=== PATIENT | female | born 1990 | race Caucasian/White ===

== ENCOUNTER → 2021-04-08 11:56 | Outpatient (CLI) | payer OTHER, SELFPAY ==
[2021-04-08 10:44] VITALS: BMI 32.7
[2021-04-08 13:13] LABS: NATERA MAILED SPECIMEN
== END ==
PROVIDERS: PCP Student in an Organized Health Care Education/Training Program; Referring Provider Obstetrics & Gynecology; Visit Provider Obstetrics & Gynecology
DX: Z34.81 Encounter for supervision of other normal pregnancy, first trimester (principal)
CPT/HCPCS: 36415

== ENCOUNTER → 2021-07-22 13:40 | Outpatient (CLI) | payer OTHER, SELFPAY ==
[2021-07-22 14:05] LABS: Absolute Neutrophil Count 9.7 X10^3/uL (2.0-7.7); Basophil# 0.02 X10^3/uL; Basophil% 0.2 % (0-1); Eosinophil# 0.23 X10^3/uL; Eosinophils% 1.7 % (0-5); Hematocrit 35.2 % (37-47); Hemoglobin 11.6 g/dL (12.0-15.0); Lymphocyte % 17.4 % (19-41); Mean Corpuscular Hgb 28.2 pg (27.0-32.0); Mean Corpuscular Volume 85.4 fL (81-99); Mean Platelet Vol. 9.2 fl (6.2-12.0); Monocyte# 0.87 X10^3/uL; Monocyte% 6.6 % (0-10); NRBC Flagged by Analyzer 0 % (0-5); Neutrophil # 9.71 X10^3/uL (2.7-7.7); Neutrophil % 73.5 % (47-70); Platelet Count 400 K/mm3 (150-450); RBC Distribution Width CV 12.3 % (11.6-14.6); RBC Distribution Width SD 38.3 fl (35.1-43.9); Red Blood Count 4.12 M/mm3 (4.2-5.4); White Blood Count 13.2 K/mm3 (4.4-11.0)
[2021-07-22 14:38] LABS: Glucose Challenge Gest 1H 50g 150 mg/dL (70-140); Thyroid Stim Hormone (TSH) 0.07 uIU/mL (0.358-3.74)
== END ==
PROVIDERS: PCP Student in an Organized Health Care Education/Training Program; Referring Provider Nurse Practitioner Women's Health; Visit Provider Nurse Practitioner Women's Health
DX: Z13.1 Encounter for screening for diabetes mellitus (principal); E03.9 Hypothyroidism, unspecified
CPT/HCPCS: 36415; 82950; 84443; 85025

== ENCOUNTER → 2021-08-02 07:06 | Outpatient (CLI) | payer OTHER, SELFPAY ==
[2021-08-02 09:56] LABS: Glucose GTT-Gestational 1 Hr 191 mg/dL (<190)
[2021-08-02 09:57] LABS: Glucose GTT-Gestation. Fasting 71 mg/dL (<105)
[2021-08-02 10:55] LABS: Glucose GTT-Gestational 2 Hr 144 mg/dL (<165)
[2021-08-02 13:28] LABS: Glucose GTT-Gestational 3 Hr 66 L (<145)
== END ==
PROVIDERS: PCP Student in an Organized Health Care Education/Training Program; Referring Provider Obstetrics & Gynecology; Visit Provider Obstetrics & Gynecology
DX: O99.810 Abnormal glucose complicating pregnancy (principal); Z3A.00 Weeks of gestation of pregnancy not specified
CPT/HCPCS: 36415; 82951; 82952

== ENCOUNTER → 2021-09-03 16:26 | Outpatient (CLI) | payer OTHER, SELFPAY ==
[2021-09-03 17:45] LABS: T4 Free Direct 1.05 ng/dL (0.76-1.46); Thyroid Stim Hormone (TSH) 0.38 uIU/mL (0.358-3.74)
== END ==
PROVIDERS: PCP Student in an Organized Health Care Education/Training Program; Visit Provider Obstetrics & Gynecology
DX: E03.9 Hypothyroidism, unspecified (principal)
CPT/HCPCS: 36415; 84439; 84443

== ENCOUNTER → 2021-10-01 17:12 | Outpatient (CLI) | payer OTHER, SELFPAY | PROVIDERS: PCP Student in an Organized Health Care Education/Training Program; Referring Provider Obstetrics & Gynecology; Visit Provider Obstetrics & Gynecology | DX: Z34.90 Encounter for supervision of normal pregnancy, unspecified, unspecified trimester (principal) | CPT/HCPCS: 87077; 87081; 87186 ==

== ENCOUNTER 2021-10-11 13:15 | Inpatient (IN) | payer OTHER, SELFPAY ==
[2021-10-11] VITALS (33 sets, daily range): BP systolic 113–153; BP diastolic 55–99; PULSE 79–133; RESP 18; TEMP 36.3–37.4; O2SAT 93–100; BMI 37.3
[2021-10-11 13:40] LABS: Hepatitis B Surface Antigen Non-Reactive (Nonreactive)
--- NOTE | 2021-10-11 13:44 | HP.PCM.OB_ITS ---
HPI - General General Date of Admission: 10/11/21 HPI Narrative EMIGDIO CARBALLO, is a 30 F who presents IAL made change to 3 cm and is uncomfortable. she denes any blee;ding or LOF> Maternal Data Information ABE Calculator Estimated Delivery Date Method Current WG Current Estimate 10/17/21 LMP (Certain) 39w 1d PFSH PFS Medical History Lab test positive for detection of COVID-19 virus Home Medications cetirizine 10 mg tablet 10 mg PO DAILY PRN 03/31/21 [History Last Taken 10/09/21 08:00] prenat.vits,mile,wuy-gllw-enraa 1 tab PO DAILY 03/31/21 [History Last Taken 10/10/21 17:00] sertraline 50 mg tablet 50 mg PO DAILY 03/31/21 [History Last Taken 10/10/21 17:00] levothyroxine 125 mcg capsule 125 mcg PO DAILY 09/03/21 [History Last Taken 10/11/21 08:00] Allergy/AdvReac Type Severity Reaction Status Date / Time No Known Allergies Allergy Verified 10/06/21 13:18 Family History Father Heart disease Grandfather Cancer prostate CVA (cerebral vascular accident) Heart disease Grandmother Breast cancer Surgical History S/P wisdom tooth extraction Social History adopted: No household members: spouse current occupational status: employed current occupation: [employer] pets and animals: Yes (avoid litter box) pets and animals: cat(s) and dog(s) Smoking Status: Never smoker alcohol intake: former details: not while substance use type: does not use History 1 Elective abortions Hx Para 0 Spontaneous abortions Hx # Term Pregnancies Ectopic pregnancies Hx # Pregnancies Multiple births # of living children Visit Details Expected Delivery Route/Plan w/ early epidural Labor Preferences- CB/BF classes: yes labor support person: Phoenix and mom Kemi labor intervention preferences: prefers limited explanation of interventions, just discuss what is needed from patient, plan early epidural, declines touch, will be emotional due to recent loss of father. pain management options preferred: early epidural cut cord/dad catch: yes : yes PP control planned: OCPs discussed possible routes of delivery and associated risks: [] special requests: [] Plans Covid status: pos in past, counseled regarding risk of covid in vs vaccination and declined vaccination flu vaccine: declined tdap vaccine: declined rhogam: na LARC form signed: 08/05 movement and labor precautions reviewed. Problem list reviewed and updated with the most current plan of care details and appropriate orders placed. Relevant counseling for the gestational age provided. Continue routine care and follow up unless otherwise noted in visit notes/problem list details OB Flowsheet Initial Weight: Not Recorded Date -?-?-?-?-?-?-?-?-?-?-?-?- EGA Weight BP Urine Prot -?-?-?-?-?-?-?-?-?-?-?-?- Glucose FHR FuHt Pres Dilation -?-?-?-?-?-?-?-?-?-?-?-?- Effaced St Visit Note 04/08/21 -?-?-?-?-?-?-?-?-?-?-?-?- 12w 4d 179 lb 2 oz 138/82 Nega tive -?-?-?-?-?-?-?-?-?-?-?-?- Negative 160 -?-?-?-?-?-?-?-?-?-?-?-?- GP - CRL 61mm co nsistent with LMP. 05/07/21 -?--?-?-?-?-?-?-?-?-?-?-?- 16w 5d 132/82 Negative -?-?-?-?-?-?-?-?-?-?-?-?- Negative 150 -?-?-?-?-?-?-?-?-?-?-?-?- SM- no vb crampi ng 05/28/21 -?-?-?-?-?-?-?-?-?-?-?-?- 19w 5d 188 lb 122/74 Negative -?-?-?-?-?-?-?-?-?-?-?-?- Negative 140 -?-?-?-?-?-?-?-?-?-?-?-?- Sm- no vbcrampin g 06/22/21 -?-?-?-?-?-?-?-?-?-?-?-?- 23w 2d 192 lb 8 oz 128/80 Nega tive -?-?-?-?-?-?-?-?-?-?-?-?- Negative 150 -?-?-?-?-?-?-?-?-?-?-?-?- MH-No VB, LOF. G ood FM but can be decreased with ant placenta. 07/22/21 -?-?-?-?-?-?-?-?-?-?-?-?- 27w 4d 197 lb 4 oz 122/76 -?-?-?-?-?-?-?-?-?-?-?-?- 135 27 -?-?-?-?-?-?-?-?-?-?-?-?- GP - no LOF, VB, DFM, ctx. Agreeable to as per MFM rec. Plan q4 growths. Failed 1h GCT . TSH abnormal - patient to call PCP 08/05/21 -?-?-?-?-?-?-?-?-?-?-?-?- 29w 4d 198 lb 124/82 -?-?-?-?-?-?-?-?-?-?-?-?- 130 29 -?-?-?-?-?-?-?-?-?-?-?-?- GP - no LOF, VB, DFM, ctx. Denies complaints. LARC form signed 09/03/21 -?-?-?-?-?-?-?-?-?-?-?-?- 33w 5d 200 lb 6 oz 114/78 Nega tive -?-?-?-?-?-?-?-?-?-?-?-?- Negative 130 33 -?-?-?-?-?-?-?-?-?-?-?-?- SM- no vb lof go od fm no reuglar ctx 10/01/21 -?-?-?-?-?-?-?-?-?-?-?-?- 37w 5d 204 lb 122/86 Negative -?-?-?-?-?-?-?-?-?-?-?-?- Negative 130 37 Cephalic -?-?-?-?-?-?-?-?-?-?-?-?- SM- no vb lof go od fm n oreuglar ctx SM- lost dad recently after heart attack. no vb lof good fm n oreuglar ctx 10/06/21 -?-?-?-?-?-?-?-?-?-?-?-?- 38w 3d 206 lb 138/80 Negative -?-?-?-?-?-?-?-?-?-?-?-?- Negative -?-?-?-?-?-?-?-?-?-?-?-?- JV- no lof ,vagi nal bleeding, or dec fm. labor prefs reviewed and scanned to chart 10/11/21 -?-?-?-?-?-?-?-?-?-?-?-?- 39w 1d 204 lb 5.896 oz 130/ 93 136/82 -?-?-?-?-?-?-?-?-?-?-?-?- -?-?-?-?-?-?-?-?-?-?-?-?- NST FHR Rate Baby A Baseline: 140 Variability:: Moderate Accelerations:: 15 x 15 Decelerations:: None NST Reactive:: Yes FHR Category:: Category I Uterine Activity:: q3-5 ROS Constitutional Constitutional: Reports systems reviewed and no addt'l complaints, except as documented ENT HEENT: Reports systems reviewed and no addt'l complaints, except as documented Cardiovascular Cardiovascular: Reports systems reviewed and no addt'l complaints, except as documented Respiratory/Chest Respiratory/Chest: Reports systems reviewed and no addt'l complaints, except as documented Gastrointestinal Gastrointestinal: Reports systems reviewed and no addt'l complaints, except as documented and nausea; Denies abdominal pain Genitourinary Genitourinary: Reports systems reviewed and no addt'l complaints, except as documented, contractions Details: present and frequency (regular ) and movement Details: present Musculoskeletal Musculoskeletal: Reports systems reviewed and no addt'l complaints, except as documented Integumentary Integumentary: Reports as per HPI Neurologic Neurologic: Reports systems reviewed and no addt'l complaints, except as documented Endocrine Endocrinology: Reports systems reviewed and no addt'l complaints, except as documented Vital Signs Vital Signs Vital Signs: 10/11/21 10:09 10/11/21 10:10 10/11/21 10:14 Temperature 98.1 F Temperature Source Temporal Pulse Rate 98 93 Blood Pressure 130/93 H 136/82 H BP Systolic 130 136 BP Diastolic 93 82 Pulse Ox 97 Weight Weight: 204 lb 5.896 oz Body Mass Index (BMI) 37.3 Physical Exam Const alert, oriented x3 and healthy appearing Constitutional Narrative: uncomfortable with contractions HEENT normocephalic and moist oral mucous membranes Head and Scalp: atraumatic Neck full ROM, no lymphadenopathy, supple and thyroid normal General: trachea midline Thyroid: thyroid normal Lymph Lymphatic: no lymphadenopathy noted Chest inspection of chest normal Resp normal respiratory effort Cardio regular rate GI normal to inspection, nondistended, normoactive bowel sounds, soft to palpation and non-tender Inspection: gravid external exam normal Bimanual Exam - Vag & Uterus: uterus non-tender Manual OB Exam: estimated gestational size appropriate, presentation cephalic, dilated, effaced and station Extremity normal to inspection General Extremity: Negative for edema Skin no rashes or lesions noted Neuro deep tendon reflexes 2+ bilaterally Motor Exam: strength 5/5 throughout and clonus absent Psych mental status grossly normal Labs Labs Labs: Hct 35.2 % (37-47) L Hgb 11.6 g/dL (12.0-15.0) L Pap Smear Negative Hep Bs Antigen Non-Reactive (Nonreactive) Glucose 1 Hr 50 gm 150 mg/dL (70-140) H Assessment & Plan (1) Positive GBS test: COMMENT: tx w/ PCN in labor (2) Skin tag of female perineum: COMMENT: remove at delivery (3) Lab test positive for detection of COVID-19 virus: COMMENT: 81 mg asa, growth US 32 & 36 weeks (4) Abnormal glucose affecting : COMMENT: passed 3 hr GTT (5) Rubella non-immune status, antepartum: COMMENT: plan MMR after delivery (6) : QUALIFIERS: Weeks of gestation: 38 weeks Qualified Code(s): Z3A.38 - 38 weeks gestation of COMMENT: ROR [facility] for labs, declines carrier, NIPT low risk, nl anatomy (7) Supervision of normal first : QUALIFIERS: Trimester: first trimester Qualified Code(s): Z34.01 - Encounter for supervision of normal first , first trimester COMMENT: PRR ABE 10/17/21 boy Creedence Spouse:Phoenix (8) Vasovagal syncope: COMMENT: occurs with pain. Had cardiac workup in high school. Any minor pain causes syncope. Asked about PCD. s/p MFM evaluation and encouraged early epidural and . Pt cancelled growth US with MFM (9) Anxiety and depression: COMMENT: Stable on dose of zoloft for multiple years (10) Hypothyroid: QUALIFIERS: Hypothyroidism type: unspecified Qualified Code(s): E03.9 - Hypothyroidism, unspecified COMMENT: TSH q trimester PLAN: Patient presents IAL, plan expectant management for , pitocin/AROM PRN if needed. Pain management: plans epidural. GBS positive plan IV PCN. Management of any complications: none I have reviewed the [facility] and made any clinically relevant updates.
[2021-10-11] MEDS: Lactated Ringers 1,000 ML 50 ML IV (13:48)
[2021-10-11 14:00] LABS: Absolute Lymphocyte Count 1.95 X10^3/uL (0.83-4.51); Absolute Neutrophil Count 18.6 X10^3/uL (2.0-7.7); Basophil# 0.05 X10^3/uL; Basophil% 0.2 % (0-1); Eosinophil# 0.01 X10^3/uL; Hematocrit 36.1 % (37-47); Hemoglobin 11.9 g/dL (12.0-15.0); Lymphocyte # 1.95 X10^3/ul (0.83-4.51); Mean Corpuscular Hgb 25.6 pg (27.0-32.0); Mean Corpuscular Volume 77.6 fL (81-99); Mean Platelet Vol. 10.4 fl (6.2-12.0); Monocyte# 0.98 X10^3/uL; Monocyte% 4.5 % (0-10); NRBC Flagged by Analyzer 0 % (0-5); Neutrophil # 18.64 X10^3/uL (2.7-7.7); Neutrophil % 85.8 % (47-70); Platelet Count 412 K/mm3 (150-450); RBC Distribution Width CV 14.7 % (11.6-14.6); RBC Distribution Width SD 40.9 fl (35.1-43.9); Red Blood Count 4.65 M/mm3 (4.2-5.4); White Blood Count 21.7 K/mm3 (4.4-11.0)
[2021-10-11] MEDS: Lactated Ringers 500 ML 999 ML IV ×2 (14:03→21:54)
[2021-10-11 15:04] LABS: Neisserai gonorrhoeae by PCR Negative (Negative); Probe Check PASS; Sample Adequacy Control PASS; Specimen Processing Control PASS
[2021-10-11] MEDS: fentaNYL-bupivacaine (epidural) 100 ML BAG EPIDURAL ×3 (15:05→23:46)
--- NOTE | 2021-10-11 16:32 | PCM.PN.BLA ---
Progress Note decel to 50s with difficulty tracing, patient felt dizzy and presyncopal current tracing: FHT: 130 Moderate variability reactive isolated prolonger decel, category II tracing [place]: Contractions reviewed tracing abnormalities since last note: good recovery after decel, arom light mec and FSE applied A/P: continue expectant managment, heart rate recovered
--- NOTE | 2021-10-11 16:48 | CASEMGMT ---
Social Work Labor and Delivery Reason for consult: OB-ERT Summary: Updated from nursing staff received after OB-ERT called. Presented to patient's room where patient's Phoenix and patient's mother Lisa were present. Introduced to self and social work role. Answered questions as able and suggested, if so desired, that one support person could be present back in the area. agreed that would like to be present. Helped Phoenix get gowned. Phoenix shared that patient lost her father about a month ago. Supportive listening offered. Physician out and updated the , escorted the back to where patient at. This short story writer presented back to patient's room to give general update to patient's mother. Patient's mother talkative and also shared that patient's father 4 weeks ago today from complications to a heart attack (had recently been recovering from COVID). Lisa shared that in addition to patient's father's and services the patient's sister got last weekend. Voiced concerns for patient. Lisa also shared that patient has a history of depression and patient's 2 sisters have history of Bipolar disorder. Supportive listening offered, as well as educated that this short story writer checks in on mothers for support, and reviews mood and anxiety disorders/resources available. Plan: Social work to follow and based on maternal history of depression, family history of emotional health, and recent familial loss will check in on patient after delivery for assessment/consult/support. -TED Ni, RETOUCHER
[2021-10-11] MEDS: Oxytocin 30 units/NS 500 ml 30 UNITS/500 ML IV.SOLN IV (17:45)
[2021-10-11] MEDS: Penicillin G 3,000,000 Units 50 ML 100 UNITS IV ×2 (17:55→23:14)
[2021-10-11] MEDS: Amnioinfusion- 0.9% NS 1,000 ML IV.SOLN. 1000 ML INTRA-UTER (18:48)
[2021-10-11] MEDS: Lactated Ringers 1,000 ML 200 ML IV (19:59)
[2021-10-12] VITALS (21 sets, daily range): BP systolic 120–172; BP diastolic 55–91; PULSE 79–187; RESP 16; TEMP 36.2–37.2; O2SAT 80–98
--- NOTE | 2021-10-12 | IMM_PTH ---
PATIENT: EMIGDIO CARBALLO LOC: WP U#:[id number] AGE/SX: 30/F ROOM: WP004 RE10/11/[address]: Dr. Ashley Moore MD : 1990 BED: 1 DIS: 10/13/2021 SPEC #: [id number] RECD: 10/13/21 13:42 STATUS: AMISHA REQ #: [id number] OLY: 10/12/21 00:[address]: Ashley Moore DEPT: IMMUNOHISTOCHEMISTRY RECD BY: Amrita Boone ENTERED: 10/13/21 13:43 SP TYPE: IMMUNO OTHR DR: Dr. Charlie Smith MD Tissues: Skin of buttock, NOS Procedures: p16 (initial) KI-67 (add) P16 (add) PHYSICIAN & INSTITUTION [place] [id number] SPECIMEN INFORMATION: Tissue Source: Buttock lesion Clinical Info: Buttock lesion Specimen Number: [id number] #1 & 2 CPT code: 29514, 70735 x3 METHODOLOGY: Deparaffinized sections of prefer/formalin-fixed tissue or PAP/DQ stained slides are incubated with monoclonal/polyclonal antibodies/oligonucleotide probes. Localization is made via biotin free immunoperoxidase method. Appropriate controls are performed and reacted as expected. Results on target cell population are indicated in the following table: RESULTS: ANTIBODY / CLONE RESULT Block 1 P16 (E6H4) positive, focal and patchy Ki-67 (30-9) positive, low Block 2 P16 (E6H4) positive, focal and patchy Ki-67 (30-9) positive, low These tests were developed and their performance characteristics determined by [facility]. They may not have been cleared or approved by the U.S. Food and Drug Administration. The FDA has determined that such clearance or approval is not necessary. The above immunohistochemical/dualISH markers are ordered and reviewed by the Pathologist. INTERPRETATION: Buttock lesion, biopsy: Fragments of squamous papilloma. See comment. TIFFANY:perry 10/14/2021 Comment: Findings may represent condyloma.
[2021-10-12] MEDS: Lactated Ringers 500 ML 999 ML IV (01:06)
[2021-10-12] MEDS: Lactated Ringers 1,000 ML 200 ML IV (01:49)
[2021-10-12] MEDS: 0.9% Saline Lock 10 ML Syringe IV ×2 (03:00→04:03)
[2021-10-12] MEDS: Penicillin G 3,000,000 Units 50 ML 100 UNITS IV (03:47)
[2021-10-12] MEDS: Ondansetron 4 MG/2 ML Vial IV (04:03)
[2021-10-12] MEDS: fentaNYL-bupivacaine (epidural) 100 ML BAG EPIDURAL (04:38)
--- NOTE | 2021-10-12 05:22 | OP.PCM_ITS ---
Assessment & Plan (1) Hypothyroid: QUALIFIERS: Hypothyroidism type: unspecified Qualified Code(s): E03.9 - Hypothyroidism, unspecified COMMENT: TSH q trimester (2) Anxiety and depression: COMMENT: Stable on dose of zoloft for multiple years (3) Vasovagal syncope: COMMENT: occurs with pain. Had cardiac workup in high school. Any minor pain causes syncope. Asked about PCD. s/p MFM evaluation and encouraged early epidural and . Pt cancelled growth US with MFM (4) Supervision of normal first : QUALIFIERS: Trimester: first trimester Qualified Code(s): Z34.01 - Encounter for supervision of normal first , first trimester COMMENT: PRR ABE 10/17/21 boy Creedence Spouse:Phoenix (5) : QUALIFIERS: Weeks of gestation: 38 weeks Qualified Code(s): Z3A.38 - 38 weeks gestation of COMMENT: ROR [facility] for labs, declines carrier, NIPT low risk, nl anatomy (6) Rubella non-immune status, antepartum: COMMENT: plan MMR after delivery (7) Abnormal glucose affecting : COMMENT: passed 3 hr GTT (8) Skin tag of female perineum: COMMENT: remove at delivery (9) Positive GBS test: COMMENT: tx w/ PCN in labor (10) Lab test positive for detection of COVID-19 virus: COMMENT: 81 mg asa, growth US 32 & 36 weeks (11) Vaginal delivery: COMMENT: ial SM boy creedence Maternal Data Information ABE Calculator Estimated Delivery Date Method Current WG Current Estimate 10/17/21 LMP (Certain) 39w 2d Vaginal Delivery Operative Information Pre-Operative Diagnosis: IAL Post-Operative Diagnosis: same Surgery / Procedure Performed: Spontaneous Vaginal Delivery (and buttox skin tag/genital wart removal 3 cm) Type of Anesthesia: Epidural Special Medications: none Estimated Blood Loss: 200 Fluids Replaced: crystalloid Findings Description of Procedure: Patient began pushing and delivered the head in the GUMARO presentation. The head was delivered atraumatically. The anterior and posterior shoulders delivered without complication followed by the rest of the and the infant was placed on the maternal abdomen. Delayed cord clamping was employed for approximately 60 seconds. Cord was clamped and cut and gentle traction was applied to the cord and the placenta delivered spontaneously immediately following it was noted to be intact with three-vessel cord. The perineum and vagina were inspected and noted to have no laceration. EBL was 200. Patient and infant tolerated delivery well. area of 3 cm skin lesion was prepped with betadine and excised with a scalpel. area treated with silver nitrate and then closed with 3-0 vicryl rapide interrupted sutures Presentation: GUMARO Amniotic Membrane Rupture Type: Artificial Amniotic Fluid Description: Lightly stained meconium Placental Delivery Description: Spontaneous Placenta Disposition: [facility] Cord Vessel Description: 3 Vessels Cord Entanglement: None Delayed Cord Clamping: Yes Post Vaginal Delivery Medications Given After Delivery: IV Pitocin and IM Methergin (mild atony no hemorrhage) Episiotomy Description: None Laceration: None Complication Complications: None Multi Select Codes Integumentary Integumentary CPT Codes: 37639 Removal of skin tags <w/15 (3 cm buttox) Urinary/Genital Urinary/Genital CPT Codes: 66263 Vaginal Delivery [facility]
--- NOTE | 2021-10-12 05:32 | PCM.DC ---
Discharge Instructions Diet Discharge Diet: No restrictions Activity Discharge Activity: Return to Normal Activity, May Not Drive (while taking narcotic pain medications.) and May Shower May resume sexual activity in: 4-6 weeks Dressing / Incision Call your doctor if your incision/area has: Continuous Slow Oozing, Sudden Increased Bleeding, Increased Pain/ Swelling, Increased Redness and Foul Smelling Discharge Follow Up Care Please Follow Up With: Ashley Moore MD When: Call [phone] to make an appointment with your doctor in 6 weeks. If you had elevated blood pressure or 4th degree laceration, you will need to be seen in 2 weeks. Test Results: Test results from this visit will be discussed in further detail at your follow-up appointment, if applicable. Discharge Plan Admission Admit Date/Time: 10/11/21 13:15 Primary Reason for Your Visit: vaginal delivery Attending Provider: Ashley Moore Primary Care Provider: Charlie Smith Discharge Orders/Prescriptions Prescriptions: New naproxen 250 MG tablet 250 - 500 mg PO Q8H PRN PRN (Reason: MILD PAIN) Qty: 30 RF: 1 Continued sertraline 50 mg tablet 50 mg PO DAILY RF: 0 cetirizine [Zyrtec] 10 mg tablet 10 mg PO DAILY PRN (Reason: Allergic Symptoms) RF: 0 prenat.vits,mile,ivp-kfmi-pxwcn Tablet 1 tab PO DAILY RF: 0 levothyroxine 125 mcg capsule 125 mcg PO DAILY RF: 0 Referrals / Follow Up: Charlie Smith MD [Primary Care Provider] - Disposition Disposition (needs filled in before D/C Order can be placed): Home, Self Care
[2021-10-12] MEDS: Oxytocin 30 units/NS 500 ml 30 UNITS/500 ML IV.SOLN 334 UNITS IV (06:51)
[2021-10-12] MEDS: Methylergonovine 0.2 MG/ML Ampul IM (06:56)
--- NOTE | 2021-10-12 07:35 | LES_PTH ---
PATIENT: EMIGDIO CARBALLO LOC: WP U#:[id number] AGE/SX: 30/F ROOM: WP004 RE10/11/[address]: Dr. Ashley Moore MD : 1990 BED: 1 DIS: 10/13/2021 SPEC #: [id number] RECD: 10/12/21 08:14 STATUS: AMISHA BAL #: [id number] OLY: 10/12/21 07:[address]: Ashley Moore DEPT: SURGICAL PATHOLOGY RECD BY: Meg Ramirez ENTERED: 10/12/21 10:01 SP TYPE: Lesion OTHR DR: Dr. Charlie Smith MD Tissues: Skin of buttock, NOS Procedures: Surgery Specimen Level IV HEADER OPERATION: Buttock lesion removal PRE-OP DIAGNOSIS: Buttock lesion TISSUE SUBMITTED: Buttock lesion MICROSCOPIC DIAGNOSIS Buttock lesion, biopsy: Fragments of squamous papilloma. See comment. TIFFANY:perry 10/13/2021 COMMENT The findings may represent condyloma. Results from immunohistochemistry ([id number]) for surrogate HPV marker (p16) will be reported separately. Clinical correlation and appropriate follow up are necessary. MICROSCOPIC DESCRIPTION Slides are reviewed. GROSS DESCRIPTION Received is one container labeled with the patient's name and not further designated. The specimen consists of two pieces of chahal-white skin measuring 1.5 x 1 x 0.2 cm and 1.5 x 1.2 x 1 cm. Both pieces are bisected. The entire specimen is submitted in two cassettes with each cassette containing one piece. / SJ:rg 10/12/2021 TC:1 CPT: 07809
[2021-10-12] MEDS: Naproxen 500 MG Tablet PO ×2 (07:57→16:49)
[2021-10-12] MEDS: Silver Nitrate (BKC) 3 EACH TOPICAL (07:58)
[2021-10-12] MEDS: Levothyroxine 125 MCG Tablet PO (09:19)
[2021-10-12] MEDS: Sertraline 50 MG Tablet PO (09:19)
[2021-10-12] MEDS: Acetaminophen 500 MG Tablet 1000 MG PO (10:28)
[2021-10-13 04:15] VITALS: BP 119/82; PULSE 78; RESP 16; TEMP 36.4; O2SAT 96
[2021-10-13] MEDS: Levothyroxine 125 MCG Tablet PO (07:45)
[2021-10-13] MEDS: Sertraline 50 MG Tablet PO (07:45)
--- NOTE | 2021-10-13 07:45 | PCM.PN.OB ---
Subjective Subjective Patient doing well without complaints. Tolerating PO. Ambulating and voiding without difficulty. Feeding well. Denies chest pain, shortness of breath, calf pain/swelling, fevers, chills, lightheadedness. Objective Data Objective Data Vital Signs: Vital Signs Temp Pulse Resp BP Pulse Ox 97.6 F L 78 16 119/82 H 96 10/13/21 04:15 10/13/21 04:15 10/13/21 04:15 10/13/21 04:15 10/13/21 04:15 Oxygen Delivery Method Room Air Weight: 204 lb 5.896 oz Body Mass Index (BMI) 37.3 Intake & Output: Intake and Output for Last 24 Hours 10/11/21 10/12/21 10/13/21 23:59 23:59 23:59 Intake Total 2766.99 / 2766.99 2375.80 / 2375.80 Output Total 800 / 800 Balance 1966.99 / 1966.99 2375.80 / 2375.80 Lab / Micro Data Result Diagrams: 10/11/21 13:45 Physical Exam Const alert and oriented x3 HEENT normocephalic Eyes PERRL Neck full ROM Resp normal respiratory effort GI soft to palpation GI Narrative: FF below U Assessment & Plan (1) Vaginal delivery: COMMENT: ial SM boy creedence PLAN: s/p PPD # 1 1. routine post delivery care 2. breast feeding- support given 3. rh positive 4. rubella nonimmune 5. Home today
[2021-10-13 07:47] VITALS: BP 134/75; PULSE 76; RESP 18; TEMP 36; O2SAT 96
[2021-10-13 07:54] VITALS: PULSE 75
--- NOTE | 2021-10-13 07:59 | NURSING ---
bedside assessment completed with student nurse. agree with student's documentation.
--- NOTE | 2021-10-13 12:00 | CASEMGMT ---
Social Work Brief Assessment - Labor and Delivery Unit Patient Address:[address] [place] [address] Phone number: [phone] Date of Referral/Notification: 10.13.2021 Time of Referral: 319 Referred By: Dr. Moore Reason for Referral: maternal history of anxiety depression Date of Intervention: 10.13.2021 Time of Intervention: 1200 Informant: Medical record and mother of baby (MOB) Mihir Gomez; father of baby (FOB) Phoenix Gomez. History: BRYAN is a 30 year old female, to the FOB Phoenix Gomez. During private conversation with MOB, MOB denies any form of abuse or safety concerns with the FOB. MOB is G1, P0 to 1 after delivering baby margarito Gomez on 10.12.2021. care started at 12 weeks gestation and regular thereafter. Infant's Apgars 3-7-9 at 1-5-10 minutes of life respectively. 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 FOB works at [employer]. No concerns or reports of substance use history. Maternal history of depression and anxiety, currently treated with Zoloft. Reports history of self injury as a teen, denies any history of suicide attempts. Family history of Bipolar disorder with BRYAN's sister. Assessment: Met with MOB and FOB together and then with MOB alone. Observed both parents to hold baby appropriately gently, and appearing to hugo with baby. MOB identifies FOB as a strong support, and supportive to MOB. MOB reports to have strong support from family and hoahaoism as well. MOB talked about the loss of her father a month ago. Appropriately tearful. MOB reports would be open to counseling should medication become ineffective in the future, but at this time believes the Zoloft to be working well. Reports FOB will be off until November to help out at home. No concerns with housing, transportation, or supplies for baby. Educated to mood and anxiety disorders including psychosis, risk factors, and importance of seeking out help and support. MOB accepted resource information for home going. Emotional support offered to to MOB. Plan: MOB and infant to home when ready. Resource information provided for home going. MOB will have help and support from family after discharge. No further needs requested or indicated. -TIMOTHY Ni, LEAD SECURITY OFFICER
[2021-10-14 14:20] LABS: Pathology Skin Biopsy SEE PATHOLOGY REPORT
== END 2021-10-13 13:00 | disposition home or self-care (01) | DRG 806 ==
LOC: WPOUT 13:22 → WP 13:22
PROVIDERS: Admitting Provider Obstetrics & Gynecology; PCP Student in an Organized Health Care Education/Training Program; Visit Provider Obstetrics & Gynecology
DX: O99.284 Endocrine, nutritional and metabolic diseases complicating childbirth (principal); O98.32 Other infections with a predominantly sexual mode of transmission complicating childbirth; Z37.0 Single live birth; E03.9 Hypothyroidism, unspecified; Z3A.38 38 weeks gestation of pregnancy; Z79.890 Hormone replacement therapy; O99.824 Streptococcus B carrier state complicating childbirth; O99.344 Other mental disorders complicating childbirth; F41.9 Anxiety disorder, unspecified; F32.9 Major depressive disorder, single episode, unspecified; O76 Abnormality in fetal heart rate and rhythm complicating labor and delivery; O99.72 Diseases of the skin and subcutaneous tissue complicating childbirth; O77.0 Labor and delivery complicated by meconium in amniotic fluid
CPT/HCPCS: 59025; 59050; 85025; 86850; 86900; 86901; 87340; 87591; 88305; 88341; 88342; 99218; J7030; J7120; A4216; G0378; J2405

== ENCOUNTER 2021-11-23 09:43 | Outpatient (CLI) | payer OTHER, SELFPAY ==
[2021-11-23 10:32] LABS: T4 Free Direct 1.55 ng/dL (0.76-1.46); Thyroid Stim Hormone (TSH) 0.02 uIU/mL (0.358-3.74)
[2021-11-27 15:53] LABS: HPV APTIMA, High Risk Negative (Negative)
== END 2021-11-23 23:59 | disposition short-term general hospital (02) ==
LOC: PAVLAB 09:44
PROVIDERS: PCP Student in an Organized Health Care Education/Training Program; Referring Provider Obstetrics & Gynecology; Visit Provider Obstetrics & Gynecology
DX: Z12.4 Encounter for screening for malignant neoplasm of cervix (principal)
CPT/HCPCS: 36415; 84439; 84443; 87624; 88175; G0145

== ENCOUNTER → 2022-11-24 | Outpatient (CLI) | payer OTHER, SELFPAY ==
[2022-11-24 16:27] LABS: hCG Titer Quant., Serum < 1 mIU/mL (1-3)
== END | disposition home or self-care (01) ==
PROVIDERS: PCP Student in an Organized Health Care Education/Training Program; Referring Provider Obstetrics & Gynecology; Visit Provider Obstetrics & Gynecology
DX: N92.6 Irregular menstruation, unspecified (principal)
CPT/HCPCS: 84702

== ENCOUNTER → 2022-12-14 | Outpatient (CLI) | payer OTHER, SELFPAY ==
[2022-12-14 15:58] LABS: Hemoglobin A1c 5.5 % (3.8-5.6)
[2022-12-14 16:03] LABS: T4 Free Direct 1.41 ng/dL (0.76-1.46); Thyroid Stim Hormone (TSH) 0.39 uIU/mL (0.358-3.74)
== END | disposition home or self-care (01) ==
LOC: PAVLAB 14:56
PROVIDERS: PCP Family Medicine; Referring Provider Registered Nurse; Visit Provider Registered Nurse
DX: E03.9 Hypothyroidism, unspecified (principal); F41.9 Anxiety disorder, unspecified; F32.A Depression, unspecified
CPT/HCPCS: 36415; 83036; 84439; 84443

== ENCOUNTER → 2023-02-09 | Outpatient (CLI) | payer OTHER, SELFPAY ==
[2023-02-13 06:06] LABS: Chlamydia By Nucleic Acid AMP Negative (Negative)
[2023-02-14 11:11] LABS: Gonococcus By Nucleic Acid AMP Negative (Negative)
== END | disposition home or self-care (01) ==
LOC: LABSPEC 13:12
PROVIDERS: PCP Family Medicine; Referring Provider Advanced Practice Midwife; Visit Provider Advanced Practice Midwife
DX: Z34.90 Encounter for supervision of normal pregnancy, unspecified, unspecified trimester (principal)
CPT/HCPCS: 87086; 87491; 87591

== ENCOUNTER → 2023-02-20 | Outpatient (CLI) | payer OTHER, SELFPAY ==
[2023-02-20 10:24] LABS: Absolute Lymphocyte Count 2.02 X10^3/uL (0.83-4.51); Absolute Neutrophil Count 9.3 X10^3/uL (2.0-7.7); Basophil# 0.03 X10^3/uL; Basophil% 0.2 % (0-1); Eosinophil# 0.24 X10^3/uL; Hematocrit 40.9 % (37-47); Hemoglobin 13.5 g/dL (12.0-15.0); Lymphocyte # 2.02 X10^3/ul (0.83-4.51); Lymphocyte % 16.4 % (19-41); Mean Corpuscular Hgb 27.8 pg (27.0-32.0); Mean Corpuscular Volume 84.3 fL (81-99); Mean Platelet Vol. 9.2 fl (6.2-12.0); Monocyte# 0.62 X10^3/uL; NRBC Flagged by Analyzer 0 % (0-5); Neutrophil # 9.33 X10^3/uL (2.7-7.7); Neutrophil % 75.9 % (47-70); Platelet Count 435 K/mm3 (150-450); RBC Distribution Width CV 14.7 % (11.6-14.6); Red Blood Count 4.85 M/mm3 (4.2-5.4); White Blood Count 12.3 K/mm3 (4.4-11.0)
[2023-02-20 10:45] LABS: Glucose Challenge Gest 1H 50g 112 mg/dL (70-140); T4 Free Direct 1.06 ng/dL (0.76-1.46); Thyroid Stim Hormone (TSH) 1.32 uIU/mL (0.358-3.74)
[2023-02-20 11:05] LABS: NATERA MAILED SPECIMEN
[2023-02-20 11:14] LABS: HIV - WCH Non-Reactive (Nonreactive); Hepatitis B Surface Antigen Non-Reactive (Nonreactive); Hepatitis C Antibody Non-Reactive (Nonreactive); Rubella IgG Reactive (Nonreactive); Syphilis Antibodies Non-reactive
== END | disposition home or self-care (01) ==
LOC: PAVLAB 09:02
PROVIDERS: Obstetrics & Gynecology; PCP Family Medicine; Referring Provider Advanced Practice Midwife; Visit Provider Advanced Practice Midwife
DX: Z34.81 Encounter for supervision of other normal pregnancy, first trimester (principal); E03.9 Hypothyroidism, unspecified
CPT/HCPCS: 36415; 82950; 84439; 84443; 85025; 86703; 86762; 86780; 86803; 86850; 86900; 86901; 87340

== ENCOUNTER → 2023-06-08 | Outpatient (CLI) | payer OTHER, SELFPAY ==
[2023-06-08 11:14] LABS: Absolute Lymphocyte Count 1.99 X10^3/uL (0.83-4.51); Absolute Neutrophil Count 10.6 X10^3/uL (2.0-7.7); Basophil# 0.03 X10^3/uL; Basophil% 0.2 % (0-1); Eosinophil# 0.24 X10^3/uL; Eosinophils% 1.8 % (0-5); Hematocrit 34.7 % (37-47); Hemoglobin 11.2 g/dL (12.0-15.0); Lymphocyte # 1.99 X10^3/ul (0.83-4.51); Lymphocyte % 14.5 % (19-41); Mean Corp Hgb Conc 32.3 g/dL (32-36); Mean Corpuscular Hgb 27.7 pg (27.0-32.0); Mean Corpuscular Volume 85.9 fL (81-99); Mean Platelet Vol. 9.3 fl (6.2-12.0); Monocyte# 0.77 X10^3/uL; Monocyte% 5.6 % (0-10); NRBC Flagged by Analyzer 0 % (0-5); Neutrophil # 10.55 X10^3/uL (2.7-7.7); Platelet Count 408 K/mm3 (150-450); RBC Distribution Width CV 13.1 % (11.6-14.6); RBC Distribution Width SD 40.9 fl (35.1-43.9); Red Blood Count 4.04 M/mm3 (4.2-5.4); White Blood Count 13.7 K/mm3 (4.4-11.0)
[2023-06-08 11:54] LABS: Glucose Challenge Gest 1H 50g 124 mg/dL (70-140); T4 Free Direct 0.98 ng/dL (0.76-1.46); Thyroid Stim Hormone (TSH) 0.49 uIU/mL (0.358-3.74)
[2023-06-08 12:15] LABS: HIV - WCH Non-Reactive (Nonreactive); Syphilis Antibodies Non-reactive
== END | disposition home or self-care (01) ==
PROVIDERS: PCP Family Medicine; Referring Provider Advanced Practice Midwife; Visit Provider Advanced Practice Midwife
DX: O99.280 Endocrine, nutritional and metabolic diseases complicating pregnancy, unspecified trimester (principal); E03.9 Hypothyroidism, unspecified; Z3A.00 Weeks of gestation of pregnancy not specified
CPT/HCPCS: 36415; 82950; 84439; 84443; 85025; 86703; 86780

== ENCOUNTER → 2023-08-04 | Outpatient (CLI) | payer OTHER, SELFPAY | END | disposition home or self-care (01) | LOC: LABSPEC 16:48 | PROVIDERS: PCP Family Medicine; Referring Provider Obstetrics & Gynecology; Visit Provider Obstetrics & Gynecology | DX: L02.419 Cutaneous abscess of limb, unspecified (principal) | CPT/HCPCS: 87070; 87077; 87186; 87205 ==

== ENCOUNTER → 2023-08-28 | Outpatient (CLI) | payer OTHER, SELFPAY | END | disposition home or self-care (01) | LOC: LABSPEC 16:51 | PROVIDERS: PCP Family Medicine; Referring Provider Nurse Practitioner Women's Health; Visit Provider Nurse Practitioner Women's Health | DX: Z34.90 Encounter for supervision of normal pregnancy, unspecified, unspecified trimester (principal) | CPT/HCPCS: 87077; 87081; 87186 ==

== ENCOUNTER 2023-09-14 18:35 | Inpatient (IN) | payer OTHER, SELFPAY ==
[2023-09-14] VITALS (70 sets, daily range): BP systolic 104–171; BP diastolic 64–100; PULSE 65–100; TEMP 36.1–36.8; O2SAT 88–100; BMI 37.3
[2023-09-14] MEDS: 0.9% Saline Lock 10 ML Syringe IV (18:05)
[2023-09-14 18:16] LABS: Absolute Lymphocyte Count 2.69 X10^3/uL (0.83-4.51); Absolute Neutrophil Count 7.7 X10^3/uL (2.0-7.7); Basophil# 0.04 X10^3/uL; Basophil% 0.3 % (0-1); Eosinophils% 1.7 % (0-5); Hematocrit 32.3 % (37-47); Hemoglobin 9.8 g/dL (12.0-15.0); Lymphocyte # 2.69 X10^3/ul (0.83-4.51); Lymphocyte % 23.3 % (19-41); Mean Corp Hgb Conc 30.3 g/dL (32-36); Mean Corpuscular Hgb 22.8 pg (27.0-32.0); Mean Corpuscular Volume 75.1 fL (81-99); Mean Platelet Vol. 10.7 fl (6.2-12.0); Monocyte# 0.89 X10^3/uL; Monocyte% 7.7 % (0-10); NRBC Flagged by Analyzer 0 % (0-5); Neutrophil # 7.67 X10^3/uL (2.7-7.7); Neutrophil % 66.5 % (47-70); Platelet Count 390 K/mm3 (150-450); RBC Distribution Width CV 14.6 % (11.6-14.6); White Blood Count 11.6 K/mm3 (4.4-11.0)
[2023-09-14] MEDS: Lactated Ringers 1,000 ML 50 ML IV (18:44)
[2023-09-14] MEDS: LACTATED RINGERS 500 ML 999 ML IV (18:45)
[2023-09-14 18:50] LABS: Syphilis Antibodies Non-reactive
[2023-09-14] MEDS: fentaNYL-bupivacaine (epidural) 100 ML BAG EPIDURAL (19:50)
[2023-09-14] MEDS: Penicillin G Pot 5,000,000 UNITS in 0.9% Normal Saline (100mL MB+) 100 ML 150 UNITS IV (20:08)
--- NOTE | 2023-09-14 20:33 | HP.PCM.OB_ITS ---
HPI - General General Date of Admission: 09/14/23 HPI Narrative EMIGDIO CARBALLO, is a 32 F who presents ial made change from 2 to 10 cm after epidural Maternal Data Information ABE Calculator 2 Estimated Delivery Date Method Current WG Current Estimate 09/16/23 Ultrasound #1 39w 5d Other Estimates 09/02/23 LMP (Certain) 41w 5d PFSH PFSH Medical History Anxiety Depression Lab test positive for detection of COVID-19 virus Pre-conception counseling Rubella non-immune status, antepartum Thyroid disorder Home Medications prenat.vits,mile,uoy-ddjs-snqiw 1 tab PO DAILY 03/31/21 [History Last Taken 10/10/21 17:00] levothyroxine 125 mcg capsule 125 mcg PO DAILY 09/03/21 [History Last Taken 10/11/21 08:00] levothyroxine 100 mcg tablet See Rx Instructions .Route .COMPLEX #30 tabs 12/20/21 [Rx Last Taken Unknown] sertraline 50 mg tablet 50 mg PO DAILY depression #90 tabs 02/28/23 [Rx Last Taken Unknown] Allergy/AdvReac Type Severity Reaction Status Date / Time No Known Allergies Allergy Verified 09/14/23 17:22 Family History Father Heart disease Grandfather Cancer prostate CVA (cerebral vascular accident) Heart disease Grandmother Breast cancer Surgical History S/P wisdom tooth extraction Social History adopted: No household members: spouse and children number of children: 1 current occupational status: employed current occupation: [employer] current occupational exposures/hazards: No pets and animals: Yes (avoid litter box-) pets and animals: cat(s) and dog(s) history of recent travel: No sexually active: Yes Smoking Status: Never smoker alcohol intake: current alcohol intake frequency: holidays/special occasions only details: not while substance use type: does not use caffeine: Yes Type: coffee Number of servings: 1 seatbelt use: always do you feel safe at home: Yes additional social history: - [place] History 2 Elective abortions Hx Para 1 Spontaneous abortions Hx # Term Pregnancies 1 Ectopic pregnancies Hx # Pregnancies Multiple births # of living children 1 Past Pregnancies Del. Date Name GA/Weeks Outcome Route Bth Weight Gen Labor Lgth Anesthesia Del Jose Provider FOB 10/12/21 Creedence 39 live - full term Male [facility] Oscar Delivery Date: 10/12/21 Last Updated by: Suzy Jones IOL Visit Details Expected Delivery Route/Plan Labor Preferences- CB/BF classes: denies labor support person: [] labor intervention preferences: [] pain management options preferred: epidural cut cord/dad catch: [] : yes PP control planned: [] discussed possible routes of delivery and associated risks: [] special requests: [] Plans Covid status: discussed Flu vaccine: discussed Tdap vaccine: declined Rhogam: na LARC form signed: yes movement and labor precautions reviewed. Problem list reviewed and updated with the most current plan of care details and appropriate orders placed. Relevant counseling for the gestational age provided. Continue routine care and follow up unless otherwise noted in visit notes/problem list details OB Flowsheet Initial Weight: Not Recorded Date -?-?-?-?-?-?-?-?-?-?-?-?- EGA Weight BP Urine Prot -?-?-?-?-?-?-?-?-?-?-?-?- Glucose FHR FuHt Pres Dilation -?-?-?-?-?-?-?-?-?-?-?-?- Effaced St Visit Note 02/09/23 -?-?-?-?-?-?-?-?-?-?-?-?- 8w 5d 180 lb 8 oz 136/78 -?-?-?-?-?-?-?-?-?-?-?-?- 160 -?-?-?-?-?-?-?-?-?-?-?-?- KW-doing well. n o cramping/VB. CRL not with dates measuring 8weeks 5 days 04/12/23 -?-?-?-?-?-?-?-?-?-?-?-?- 17w 4d 186 lb 2 oz 124/74 Nega tive -?-?-?-?-?-?-?-?-?-?-?-?- Negative 164 -?-?-?-?-?-?-?-?-?-?-?-?- MH-No VB, LOF. ? flutters. Denies concerns. 05/09/23 -?-?-?-?-?-?-?-?-?-?-?-?- 21w 3d 188 lb 8 oz 99/63 Nega tive -?-?-?-?-?-?-?-?-?-?-?-?- Negative 135 22 -?-?-?-?-?-?-?-?-?-?-?-?- KW-+flutters, no lof/vb/cramping. no concerns today. 28 week and thyroid labs ordered 06/08/23 -?-?-?-?-?-?-?-?-?-?-?-?- 25w 5d 191 lb 111/71 Negative -?-?-?-?-?-?-?--?-?-?-?-?- Negative 130 25 -?-?-?-?-?-?-?-?-?-?-?-?- JV- no lof, vagi nal bleeding, or cramping. discussed midwifery practice and she thinks she wants to request Kim at delivery. normal gct and cbc 07/20/23 -?-?-?-?-?-?-?-?-?-?-?-?- 31w 5d 196 lb 2 oz 116/80 Nega tive -?-?-?-?-?-?-?-?-?-?-?-?- Negative 130 32 -?-?-?-?-?-?-?-?-?-?-?-?- KW-no lof/vb/ctx . good fm. no concerns today 08/04/23 -?-?-?-?-?-?-?-?-?-?-?-?- 33w 6d 197 lb 8 oz 113/68 Nega tive -?-?-?-?-?-?-?-?-?-?-?-?- Negative 125 -?-?-?-?-?-?-?-?-?-?-?-?- JV- axillary abc ess noted today that ruptured spontaneously with light palpation. starting abx. 08/28/23 -?-?-?-?-?-?-?-?-?-?-?-?- 37w 2d 202 lb 2 oz 120/78 Nega tive -?-?-?-?-?-?-?-?-?-?-?-?- Negative 131 36 0 -?-?-?-?-?-?-?-?-?-?--?-?- 20 -3 MH-No Vb, LOF. Good FM. No reg CTX. GBS done 09/13/23 -?-?-?-?-?-?-?-?-?-?-?-?- 39w 4d 203 lb 2 oz 131/85 120/85 Negative -?-?-?-?-?-?-?--?-?-?-?-?- Negative 145 38 Cephalic 2 .5 -?-?-?-?-?-?-?-?-?-?-?-?- 80 -2 JV- cx fawad nged from last week. labor precautions discussed. no lof, vaginal bleeding, or dec fm. NST FHR Rate Baby A Baseline: 140 Variability:: Moderate Accelerations:: 15 x 15 Decelerations:: None NST Reactive:: Yes FHR Category:: Category I Uterine Activity:: q3-5 ROS Constitutional Constitutional: Reports systems reviewed and no addt'l complaints, except as documented ENT HEENT: Reports systems reviewed and no addt'l complaints, except as documented Cardiovascular Cardiovascular: Reports systems reviewed and no addt'l complaints, except as documented Respiratory/Chest Respiratory/Chest: Reports systems reviewed and no addt'l complaints, except as documented Gastrointestinal Gastrointestinal: Reports systems reviewed and no addt'l complaints, except as documented and nausea; Denies abdominal pain Genitourinary Genitourinary: Reports systems reviewed and no addt'l complaints, except as documented, contractions Details: present and frequency (regular ) and movement Details: present Musculoskeletal Musculoskeletal: Reports systems reviewed and no addt'l complaints, except as documented Integumentary Integumentary: Reports as per HPI Neurologic Neurologic: Reports systems reviewed and no addt'l complaints, except as documented Endocrine Endocrinology: Reports systems reviewed and no addt'l complaints, except as documented Vital Signs Vital Signs Vital Signs: 09/14/23 17:09 09/14/23 17:09 09/14/23 17:11 Pulse Rate 94 Blood Pressure 148/92 H 138/88 H BP Systolic 148 138 BP Diastolic 92 88 Pulse Ox 09/14/23 17:11 09/14/23 19:16 09/14/23 19:16 Pulse Rate 93 85 Blood Pressure 157/89 H BP Systolic 157 BP Diastolic 89 Pulse Ox 09/14/23 19:16 09/14/23 19:17 09/14/23 19:17 Pulse Rate 80 Blood Pressure BP Systolic BP Diastolic Pulse Ox 100 88 09/14/23 19:20 09/14/23 19:20 09/14/23 19:21 Pulse Rate 70 70 Blood Pressure 159/93 H BP Systolic 159 BP Diastolic 93 Pulse Ox 09/14/23 19:21 09/14/23 19:24 09/14/23 19:24 Pulse Rate 73 Blood Pressure BP Systolic BP Diastolic Pulse Ox 95 94 09/14/23 19:25 09/14/23 19:25 09/14/23 19:26 Pulse Rate 75 74 Blood Pressure 159/82 H BP Systolic 159 BP Diastolic 82 Pulse Ox 09/14/23 19:26 09/14/23 19:30 09/14/23 19:30 Pulse Rate 77 Blood Pressure 171/83 H BP Systolic 171 BP Diastolic 83 Pulse Ox 100 09/14/23 19:32 09/14/23 19:32 09/14/23 19:36 Pulse Rate 75 Blood Pressure 164/100 H BP Systolic 164 BP Diastolic 100 Pulse Ox 90 09/14/23 19:36 09/14/23 19:36 09/14/23 19:36 Pulse Rate 78 77 Blood Pressure BP Systolic BP Diastolic Pulse Ox 100 09/14/23 19:40 09/14/23 19:40 09/14/23 19:41 Pulse Rate 74 73 Blood Pressure 160/94 H BP Systolic 160 BP Diastolic 94 Pulse Ox 09/14/23 19:41 09/14/23 19:46 09/14/23 19:46 Pulse Rate 65 Blood Pressure 168/83 H BP Systolic 168 BP Diastolic 83 Pulse Ox 100 09/14/23 19:46 09/14/23 19:46 09/14/23 19:50 Pulse Rate 69 Blood Pressure 147/89 H BP Systolic 147 BP Diastolic 89 Pulse Ox 100 09/14/23 19:50 09/14/23 19:51 09/14/23 19:51 Pulse Rate 86 83 Blood Pressure BP Systolic BP Diastolic Pulse Ox 100 09/14/23 19:55 09/14/23 19:55 09/14/23 19:56 Pulse Rate 80 69 Blood Pressure 149/87 H BP Systolic 149 BP Diastolic 87 Pulse Ox 09/14/23 19:56 09/14/23 20:00 09/14/23 20:00 Pulse Rate 75 Blood Pressure 133/90 H BP Systolic 133 BP Diastolic 90 Pulse Ox 100 09/14/23 20:01 09/14/23 20:01 09/14/23 20:05 Pulse Rate 80 Blood Pressure 138/82 H BP Systolic 138 BP Diastolic 82 Pulse Ox 99 09/14/23 20:05 09/14/23 20:06 09/14/23 20:06 Pulse Rate 100 82 Blood Pressure BP Systolic BP Diastolic Pulse Ox 99 09/14/23 20:11 09/14/23 20:11 09/14/23 20:11 Pulse Rate 90 100 Blood Pressure 130/74 H BP Systolic 130 BP Diastolic 74 Pulse Ox 09/14/23 20:11 09/14/23 20:15 09/14/23 20:15 Pulse Rate 83 Blood Pressure 111/64 BP Systolic 111 BP Diastolic 64 Pulse Ox 99 09/14/23 20:16 09/14/23 20:16 09/14/23 20:20 Pulse Rate 82 Blood Pressure 128/70 H BP Systolic 128 BP Diastolic 70 Pulse Ox 95 09/14/23 20:20 09/14/23 20:21 09/14/23 20:21 Pulse Rate 81 82 Blood Pressure BP Systolic BP Diastolic Pulse Ox 100 09/14/23 20:25 09/14/23 20:25 09/14/23 20:26 Pulse Rate 71 68 Blood Pressure 132/71 H BP Systolic 132 BP Diastolic 71 Pulse Ox 09/14/23 20:26 09/14/23 20:31 09/14/23 20:31 Pulse Rate 79 Blood Pressure BP Systolic BP Diastolic Pulse Ox 98 100 Weight Weight: 203 lb 12.8 oz Body Mass Index (BMI) 37.3 Physical Exam Const alert, oriented x3 and healthy appearing Constitutional Narrative: uncomfortable with contractions HEENT normocephalic and moist oral mucous membranes Head and Scalp: atraumatic Neck full ROM, no lymphadenopathy, supple and thyroid normal General: trachea midline Thyroid: thyroid normal Lymph Lymphatic: no lymphadenopathy noted Chest inspection of chest normal Resp normal respiratory effort Cardio regular rate GI normal to inspection, nondistended, normoactive bowel sounds, soft to palpation and non-tender Inspection: gravid external exam normal Bimanual Exam - Vag & Uterus: uterus non-tender Manual OB Exam: estimated gestational size appropriate, presentation cephalic, dilated, effaced and station Extremity normal to inspection General Extremity: Negative for edema Skin no rashes or lesions noted Neuro deep tendon reflexes 2+ bilaterally Motor Exam: strength 5/5 throughout and clonus absent Psych mental status grossly normal Labs Labs Labs: Blood Type A POSITIVE Antibody Screen NEGATIVE Hct 32.3 % (37-47) L Hgb 9.8 g/dL (12.0-15.0) L Pap Smear Negative Syphilis Total Ab Non-reactive Rubella IgG Antibody Reactive (Nonreactive) Hep Bs Antigen Non-Reactive (Nonreactive) Hepatitis C Antibody Non-Reactive (Nonreactive) Chlamydia DNA (RAMILA) Negative (Negative) N.gonorrhoeae DNA (RAMILA) Negative (Negative) HIV 1&2 Antibody Non-Reactive (Nonreactive) Glucose 1 Hr 50 gm 124 mg/dL (70-140) Gest Glucose Tolerance MG/DL Assessment & Plan (1) Active labor at term: (2) Vasovagal syncope: COMMENT: occurs with pain. Had cardiac workup in high school. Any minor pain causes syncope. Asked about PCD. s/p MFM evaluation and encouraged early epidural and . Pt cancelled growth US with MFM (3) Anxiety and depression: COMMENT: Stable on dose of zoloft for multiple years (4) Hypothyroid: QUALIFIERS: Hypothyroidism type: unspecified Qualified Code(s): E03.9 - Hypothyroidism, unspecified COMMENT: check tsh free t4 q trimester, adjust dose and refer to pivot maker PRN (5) : QUALIFIERS: Weeks of gestation: 39 weeks Qualified Code(s): Z3A.39 - 39 weeks gestation of COMMENT: NIPT low risk, Nml anatomy, (6) Supervision of high risk , antepartum: COMMENT: [id number] ABE 09/02/23 Lynne PC: Creedence, Spouse: [place] (7) Axillary abscess: COMMENT: culture collected, starting augmentin (8) GBS (group B Streptococcus carrier), +RV culture, currently : COMMENT: treat in labor PLAN: Plan admit IAL for epidural, gbs pos- PCN
--- NOTE | 2023-09-14 20:34 | OP.PCM_ITS ---
Assessment & Plan (1) Active labor at term: (2) GBS (group B Streptococcus carrier), +RV culture, currently : COMMENT: treat in labor (3) Axillary abscess: COMMENT: culture collected, starting augmentin (4) Supervision of high risk , antepartum: COMMENT: [id number] ABE 09/02/23 Lynne PC: Rob, Spouse: [place] (5) : QUALIFIERS: Weeks of gestation: 39 weeks Qualified Code(s): Z3A.39 - 39 weeks gestation of COMMENT: NIPT low risk, Nml anatomy, (6) Hypothyroid: QUALIFIERS: Hypothyroidism type: unspecified Qualified Code(s): E03.9 - Hypothyroidism, unspecified COMMENT: check tsh free t4 q trimester, adjust dose and refer to hotel housekeeper PRN (7) Vasovagal syncope: COMMENT: occurs with pain. Had cardiac workup in high school. Any minor pain causes syncope. Asked about PCD. s/p MFM evaluation and encouraged early epidural and . Pt cancelled growth US with MFM (8) Anxiety and depression: COMMENT: Stable on dose of zoloft for multiple years (9) Vaginal delivery: COMMENT: SM girl Lynne 39 Maternal Data Information ABE Calculator Estimated Delivery Date Method Current WG Current Estimate 09/16/23 Ultrasound #1 39w 5d Other Estimates 09/02/23 LMP (Certain) 41w 5d Vaginal Delivery Operative Information Pre-Operative Diagnosis: see a/p diagnoses Post-Operative Diagnosis: same Surgery / Procedure Performed: Spontaneous Vaginal Delivery Type of Anesthesia: Epidural Special Medications: none Estimated Blood Loss: 200 Fluids Replaced: crystalloid Findings Description of Procedure: Patient began pushing and delivered the head in the bing presentation. The head was delivered atraumatically and a loose nuchal cord ?1 was identified and the infant delivered through without complication. The posterior arm delivered anterior and posterior shoulders delivered without complication followed by the rest of the and the infant was placed on the maternal abdomen. Delayed cord clamping was employed for approximately 60 seconds. Cord was clamped and cut and gentle traction was applied to the cord and the placenta delivered spontaneously immediately following it was noted to be intact with three-vessel cord. The perineum and vagina were inspected and [noted to have a degree perineal laceration which was repaired in the usual fashion with 3-0 vicryl rapide.] [noted to have no laceration]. EBL was [200 cc]. Patient and tolerated delivery well. Amniotic Fluid Description: Clear Placental Delivery Description: Spontaneous Placenta Disposition: [facility] Cord Vessel Description: 3 Vessels Cord Entanglement: None Delayed Cord Clamping: Yes Post Vaginal Delivery Medications Given After Delivery: IV Pitocin Episiotomy Description: None Complication Complications: None Procedures Urinary/Genital [id number]: [id number] Vaginal Delivery global pkg
--- NOTE | 2023-09-14 20:35 | DCINST_ITS ---
Discharge Instructions Diet Discharge Diet: No restrictions Activity Discharge Activity: Return to Normal Activity, May Not Drive (while taking narcotic pain medications.) and May Shower May resume sexual activity in: 4-6 weeks Dressing / Incision Call your doctor if your incision/area has: Continuous Slow Oozing, Sudden Increased Bleeding, Increased Pain/ Swelling, Increased Redness and Foul Smelling Discharge Follow Up Care Please Follow Up With: Ashley Moore MD When: Call [phone] to make an appointment with your doctor in 6 weeks. If you had elevated blood pressure or 4th degree laceration, you will need to be seen in 2 weeks. Test Results: Test results from this visit will be discussed in further detail at your follow- up appointment, if applicable. Discharge Plan Admission Admit Date/Time: 09/14/23 18:35 Attending Provider: Ashley Moore Primary Care Provider: Be Reed Discharge Orders/Prescriptions Prescriptions: No Action prenat.vits,mile,zke-agho-imnoz Tablet 1 tab PO DAILY levothyroxine 125 mcg capsule 125 mcg PO DAILY levothyroxine 100 mcg tablet See Rx Instructions .ROUTE .COMPLEX Qty: 30 2RF Dose Instruction: TAKE 1 TABLET BY MOUTH EVERY DAY Rx Instructions: TAKE 1 TABLET BY MOUTH EVERY DAY sertraline 50 mg tablet 50 mg PO DAILY Qty: 90 3RF Referrals / Follow Up: Be Reed MD [Primary Care Provider] - Disposition Disposition (needs filled in before D/C Order can be placed): Home, Self Care
[2023-09-14] MEDS: Oxytocin 15 Units/NS 250ml 15 UNITS/250 ML IV.SOLN 83 UNITS IV (21:07)
[2023-09-14] MEDS: Oxytocin 10 UNITS/ML Vial IM (21:07)
[2023-09-14] MEDS: Methylergonovine 0.2 MG/ML Ampul IM (22:54)
[2023-09-14] MEDS: Carboprost Tromethamine 250 MCG/ML Ampul IM (23:23)
[2023-09-15] VITALS (10 sets, daily range): BP systolic 121–143; BP diastolic 70–79; PULSE 73–100; RESP 15–16; TEMP 36–36.7; O2SAT 97–100
--- NOTE | 2023-09-15 00:15 | MDS.RN ---
RN assisted pt to the BR, PT tolerated well. Bleeding WNL at this time. pt voided 100cc urine. Epidural catheter removed and blue tip intact.
[2023-09-15] MEDS: Naproxen 500 MG Tablet PO ×2 (00:18→20:25)
--- NOTE | 2023-09-15 02:00 | NURSING ---
RN noted red rash to left thigh where pt had received hemabate injection. Pt states it is not painful, it is not warm to touch and is not itchy. RN outlined redness and pt applied ice pack to it. RN will continue to monitor.
--- NOTE | 2023-09-15 02:05 | NURSING ---
Pt states she voided in her pad when she sat up to feed the baby and it felt like alot.
[2023-09-15] MEDS: Acetaminophen 500 MG Tablet 1000 MG PO ×2 (02:08→23:59)
[2023-09-15 06:22] LABS: Absolute Lymphocyte Count 3.05 X10^3/uL (0.83-4.51); Basophil# 0.02 X10^3/uL; Basophil% 0.1 % (0-1); Eosinophil# 0.04 X10^3/uL; Eosinophils% 0.2 % (0-5); Hematocrit 30.9 % (37-47); Hemoglobin 9.5 g/dL (12.0-15.0); Lymphocyte # 3.05 X10^3/ul (0.83-4.51); Lymphocyte % 16.3 % (19-41); Mean Corp Hgb Conc 30.7 g/dL (32-36); Mean Corpuscular Hgb 22.9 pg (27.0-32.0); Mean Corpuscular Volume 74.6 fL (81-99); Mean Platelet Vol. 10.7 fl (6.2-12.0); Monocyte# 1.57 X10^3/uL; Monocyte% 8.4 % (0-10); NRBC Flagged by Analyzer 0 % (0-5); Neutrophil # 13.95 X10^3/uL (2.7-7.7); Neutrophil % 74.3 % (47-70); POSITIVE DIFFERENTIAL YES; Platelet Count 355 K/mm3 (150-450); RBC Distribution Width CV 14.7 % (11.6-14.6); RBC Distribution Width SD 39.5 fl (35.1-43.9); Red Blood Count 4.14 M/mm3 (4.2-5.4); White Blood Count 18.8 K/mm3 (4.4-11.0)
[2023-09-15 06:40] LABS: Differential Indicated SCAN CRITERIA MET
[2023-09-15 06:49] LABS: Differential Comment SCANNED; Hypochromasia 1+
--- NOTE | 2023-09-15 07:03 | PCM.PN.BLA ---
Progress Note patient had increased bleeding , methergine and hemabate given, now stable. repeat Hg stable. Assessment & Plan Assessment/Plan (1) Atony of uterus: (2) Vaginal delivery:
--- NOTE | 2023-09-15 15:48 | CASEMGMT ---
Social Work Assessment Labor and Delivery Unit Patient Address:[address] [place] [address] Phone number: [phone] Date of Referral: 09/15/23 Time of Referral:? 1417 Referred By: Ashley Moore Date of Intervention: ??09/15/23 Time of Intervention:? 1500 Reason for Referral:? history of anxiety and depression Sw completed chart review and acknowledges social work consult due to maternal mental health history. Sw presented to bedside and introduced self to mother of baby (BRYAN- Je[place]) and father of baby (KHADIJAH- [place]). Sw explained reason for sw involvement and completed psychosocial assessment. History obtained from: medical records and mother of baby (MOB)?and FOB. Household composition: Currently residing in the family home is KHADIJAH ADAMS, they have one other child together (Creedence, 10/12/21) and now baby. Parents deny that anyone else lives with them. No housing concerns, housing is reported to be safe. Patient's parent/guardian status:? BRYAN reports thats he and KHADIJAH have been together for almost 7 years, they met online. No concerns of domestic violence or intimate partner violence reported. ? Medical History: BRYAN is 32 year old Caucaian female who is 2., para 1- now 2 following delivery of baby. BRYAN delivered baby on 09/14/23 via vaginal delivery. Baby girl, named Lynne Jensen, was born weighing 6lb 11oz and her apgars were 8 and 9 at one and five minutes of life respectfully. Educational Status:? Both parents graduated from high school. BRYAN obtained her masters degree in Art Education. KHADIJAH has some college education but does not have a degree. No concerns with reading, learning or comprehension. Financial Status: Both parents are gainfully employed outside of the home. KHADIJAH works as a family service aide for an [employer]- he is able to take a week off of work. BRYAN is an creative art therapist for [employer]. Infant Supplies: Parents have obtained everything they need for baby including: car seat, safe sleep space, clothes, diapers, and wipes. Childcare/Caregiver(s):? BRYAN will be the primary caregiver to baby while she is on maternity leave, along with help from KHADIJAH when he is not at work. When both parents are at work maternal grandma and aunt will be babysitters. Transportation:?No transportation barriers, both parents drive and have reliable vehicles.? Programs/Agencies Involved: ???None at this time. Children Services/Legal Issues:???No history of Children Services involvement, no issues or concerns warranting a referral at this time. Behavioral Health Issues: ??Mental Health History:?FOB denies mental health history aside from normal life anxiety. MOB states that she has been diagnosed with anxiety and depression. MOB states that she did experience some baby blues after her first baby was born. BRYAN is prescribed zoloft from her OBGYN. ?? Substance Use History:??MOB denies history of substance use prior to and during . Family History:?No family history of substance use. ?? Drug Screens: ??No urine screens observed during chart review. Family/Social Stressors:? Parents deny stressors or concerns at this time. Support Systems: MOB reports that they have a lot of family who is supportive along with a great support group from [place] Depression/Shaken Baby/Safe Sleeping:? Sw educated MOB and FOB on signs and symptoms of baby blues and depression. Sw provided literature for parents to review. Parents expressed understanding. Sw educated parents on shaken baby prevention and ABCs of safe sleep. Parents expressed understanding. ASSESSMENT:? MOB and baby admitted following labor and delivery. MOB and FOB engaged in conversation during sw assessment. Parents have everything they need for baby and adequate natural supports. Parents express no needs or concerns and were receptive to sw involvement and support. PLAN:? MOB and baby to be discharged when medically ready. ?No other services requested or indicated. Mariza Linares, SILVER BUFFER, ASSOCIATE PROJECT MANAGER
--- NOTE | 2023-09-15 17:27 | PN.OBGYN_ITS ---
Subjective Subjective Patient doing well without complaints. Tolerating PO. Ambulating and voiding without difficulty. Feeding well. Denies chest pain, shortness of breath, calf pain/swelling, fevers, chills, lightheadedness. Objective Data Objective Data Vital Signs: Vital Signs Temp Pulse Resp BP Pulse Ox O2 Del Method 98.1 F 86 16 124/70 H 100 Room Air 09/15/23 14:51 09/15/23 14:52 09/15/23 14:51 09/15/23 14:52 09/15/23 08:41 09/15/23 14:51 Oxygen Delivery Method Room Air Weight: 203 lb 12.8 oz Body Mass Index (BMI) 37.3 Intake & Output: Intake and Output for Last 24 Hours 09/13/23 09/14/23 09/15/23 23:59 23:59 23:59 Intake Total 1080.81 / 1080.81 Output Total 275 / 275 1600 / 1600 Balance 805.81 / 805.81 -1600 / -1600 Lab / Micro Data Attestation: I reviewed the patient's lab results. 09/15/23 06:10 Labs: Laboratory Results - last 24 hr 09/14/23 18:05: WBC 11.6 H, RBC 4.30, Hgb 9.8 L, Hct 32.3 L, MCV 75.1 L, MCH 22.8 L, MCHC 30.3 L, RDW Std Deviation 39.0, RDW Coeff of Ganesh 14.6, Plt Count 390, MPV 10.7, Immature Gran % (Auto) 0.500, Neut % (Auto) 66.5, Lymph % (Auto) 23.3, Mcnairy % (Auto) 7.7, Eos % (Auto) 1.7, Baso % (Auto) 0.3, Absolute Neuts (auto) 7.7, Absolute Lymphs (auto) 2.69, Nucleated RBC % 0, Syphilis Total Ab Non-reactive, Blood Type A POSITIVE, Antibody Screen NEGATIVE 09/15/23 06:10: WBC 18.8 H, RBC 4.14 L, Hgb 9.5 L, Hct 30.9 L, MCV 74.6 L, MCH 22.9 L, MCHC 30.7 L, RDW Std Deviation 39.5, RDW Coeff of Ganesh 14.7 H, Plt Count 355, MPV 10.7, Immature Gran % (Auto) 0.700, Neut % (Auto) 74.3 H, Lymph % (Auto) 16.3 L, Mcnairy % (Auto) 8.4, Eos % (Auto) 0.2, Baso % (Auto) 0.1, Absolute Neuts (auto) 14.0 H, Absolute Lymphs (auto) 3.05, Nucleated RBC % 0, Differential Comment SCANNED, Diff Path Review May foll, Hypochromasia 1+ ROS Constitutional Constitutional: Reports systems reviewed and no addt'l complaints, except as documented; Denies anorexia or headache(s) Cardiovascular Cardiovascular: Reports systems reviewed and no addt'l complaints, except as documented; Denies dizziness, dyspnea, nausea or tachypnea Respiratory/Chest Respiratory/Chest: Reports systems reviewed and no addt'l complaints, except as documented; Denies cough, dyspnea, shortness of breath at rest or tachypnea Gastrointestinal Gastrointestinal: Reports systems reviewed and no addt'l complaints, except as documented; Denies abdominal pain, constipation or nausea Genitourinary Genitourinary: Reports systems reviewed and no addt'l complaints, except as documented; Denies burning urination, difficulty urinating, dysuria, urinary frequency or urinary incontinence Musculoskeletal Musculoskeletal: Reports systems reviewed and no addt'l complaints, except as documented Integumentary Integumentary: Reports systems reviewed and no addt'l complaints, except as documented Neurologic Neurologic: Reports systems reviewed and no addt'l complaints, except as documented; Denies abnormal speech, dizziness or headache(s) Psychiatric Psychiatric: Reports systems reviewed and no addt'l complaints, except as documented Endocrine Endocrinology: Reports systems reviewed and no addt'l complaints, except as d ocumented Hematologic/Lymphatic Hematologic/Lymphatic: Reports systems reviewed and no addt'l complaints, except as documented Physical Exam Const alert, oriented x3 and no apparent distress Neck full ROM Resp normal respiratory effort, normal air movement and no retractions Effort and Inspection: able to speak in complete sentences and symmetric chest movement GI soft to palpation Bladder / Kidney Exam: bladder normal to palpation Uterus Palpation: uterus fundus firm Extremity normal to inspection and full ROM Psych mental status grossly normal, thought process normal and cooperative Assessment & Plan (1) Atony of uterus: COMMENT: methergine and hemabate given for delayed atony, repeat Hg stable and bleeding stable (2) Vaginal delivery: COMMENT: SM girl Lynne 37 PLAN: s/p PPD # 1 1. routine post delivery care 2. breast feeding- support given 3. rh positive 4. 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
[2023-09-16 01:00] VITALS: BP 128/75; PULSE 65; RESP 15; TEMP 36.4; O2SAT 97
[2023-09-16 01:06] VITALS: BP 128/75; PULSE 71; O2SAT 97
--- NOTE | 2023-09-16 07:07 | PN.OBGYN_ITS ---
Subjective Subjective Patient doing well without complaints. Tolerating PO. Ambulating and voiding without difficulty. Feeding well. Denies chest pain, shortness of breath, calf pain/swelling, fevers, chills, lightheadedness. Objective Data Objective Data Vital Signs: Vital Signs Temp Pulse Resp BP Pulse Ox O2 Del Method 97.6 F L 71 15 128/75 H 97 Room Air 09/16/23 01:00 09/16/23 01:06 09/16/23 01:00 09/16/23 01:06 09/16/23 01:06 09/16/23 01:00 Oxygen Delivery Method Room Air Weight: 203 lb 12.8 oz Body Mass Index (BMI) 37.3 Intake & Output: Intake and Output for Last 24 Hours 09/14/23 09/15/23 09/16/23 23:59 23:59 23:59 Intake Total 1080.81 / 1080.81 Output Total 275 / 275 1600 / 1600 Balance 805.81 / 805.81 -1600 / -1600 Lab / Micro Data Attestation: I reviewed the patient's lab results. 09/15/23 06:10 ROS Constitutional Constitutional: Reports systems reviewed and no addt'l complaints, except as documented; Denies anorexia or headache(s) Cardiovascular Cardiovascular: Reports systems reviewed and no addt'l complaints, except as documented; Denies dizziness, dyspnea, nausea or tachypnea Respiratory/Chest Respiratory/Chest: Reports systems reviewed and no addt'l complaints, except as documented; Denies cough, dyspnea, shortness of breath at rest or tachypnea Gastrointestinal Gastrointestinal: Reports systems reviewed and no addt'l complaints, except as documented; Denies abdominal pain, constipation or nausea Genitourinary Genitourinary: Reports systems reviewed and no addt'l complaints, except as documented; Denies burning urination, difficulty urinating, dysuria, urinary frequency or urinary incontinence Musculoskeletal Musculoskeletal: Reports systems reviewed and no addt'l complaints, except as documented Integumentary Integumentary: Reports systems reviewed and no addt'l complaints, except as documented Neurologic Neurologic: Reports systems reviewed and no addt'l complaints, except as documented; Denies abnormal speech, dizziness or headache(s) Psychiatric Psychiatric: Reports systems reviewed and no addt'l complaints, except as documented Endocrine Endocrinology: Reports systems reviewed and no addt'l complaints, except as documented Hematologic/Lymphatic Hematologic/Lymphatic: Reports systems reviewed and no addt'l complaints, except as documented Physical Exam Const alert, oriented x3 and no apparent distress Neck full ROM Resp normal respiratory effort, normal air movement and no retractions Effort and Inspection: able to speak in complete sentences and symmetric chest movement GI soft to palpation Bladder / Kidney Exam: bladder normal to palpation Uterus Palpation: uterus fundus firm Extremity normal to inspection and full ROM Psych mental status grossly normal, thought process normal and cooperative Assessment & Plan (1) Atony of uterus: COMMENT: methergine and hemabate given for delayed atony, repeat Hg stable and bleeding stable (2) Vaginal delivery: COMMENT: girl Lynne 37 PLAN: s/p PPD # 2 1. routine post delivery care 2. breast feeding- support given 3. rh positive 4. rubella immune 5. discharge home (3) Anxiety and depression: COMMENT: Stable on dose of zoloft for multiple years (4) Hypothyroid: QUALIFIERS: Hypothyroidism type: unspecified Qualified Code(s): E03.9 - Hypothyroidism, unspecified COMMENT: check tsh free t4 q trimester, adjust dose and refer to management advisor PRN Charges/Coding Multi Select Codes Urinary/Genital Urinary/Genital CPT Codes: No Charge
[2023-09-16 09:17] VITALS: BP 139/87; PULSE 72; RESP 16; TEMP 36.8
[2023-09-18 08:47] LABS: Pathologist Review Reviewed
== END 2023-09-16 10:05 | disposition home or self-care (01) | DRG 807 ==
LOC: WPOUT 18:45 → WP 18:45
PROVIDERS: Admitting Provider Obstetrics & Gynecology; PCP Family Medicine; Visit Provider Obstetrics & Gynecology
DX: O69.81X0 Labor and delivery complicated by cord around neck, without compression, not applicable or unspecified (principal); Z37.0 Single live birth; O99.344 Other mental disorders complicating childbirth; E03.9 Hypothyroidism, unspecified; F32.A Depression, unspecified; F41.9 Anxiety disorder, unspecified; O62.2 Other uterine inertia; O99.284 Endocrine, nutritional and metabolic diseases complicating childbirth; Z86.16 Personal history of COVID-19; O99.824 Streptococcus B carrier state complicating childbirth; Z3A.39 39 weeks gestation of pregnancy
CPT/HCPCS: 59025; 59050; 85025; 86780; 86850; 86900; 86901; 99221; J7120; A4216; G0378

== ENCOUNTER → 2023-10-26 | Outpatient (CLI) | payer OTHER, SELFPAY | END | disposition home or self-care (01) | LOC: LABSPEC 14:25 | PROVIDERS: PCP Family Medicine; Referring Provider Obstetrics & Gynecology; Visit Provider Obstetrics & Gynecology | DX: R30.0 Dysuria (principal) | CPT/HCPCS: 87077; 87086; 87088; 87186 ==